=== PATIENT | female | born 1980 | race African-American/Black ===

== ENCOUNTER → 2018-07-26 | Outpatient (CLI) | payer OTHER ==
[~2018-07-26] MED LIST: CHOLESTYRAMINE L4 GM PO; CIPRO500 MG PO; FLAGYL500 MG PO; IMODIUM2 MG PO; LOPRESSOR25 MG PO
== END ==
LOC: MAMMO 13:18
PROVIDERS: ATTEND Internal Medicine
DX: Z12.31 Encounter for screening mammogram for malignant neoplasm of breast (principal)
CPT/HCPCS: 77067

== ENCOUNTER 2018-10-30 01:08 | Emergency (ER) | payer OTHER ==
[~2018-10-30] VITALS: Ht 167.6 cm; Wt 124.3 kg
--- OUTSIDE RECORDS SUMMARY | 2018-10-30 01:10 | XMS REPORT ---
Author Author [facility] Address Unknown Phone Unavailable Care Team Providers Care Photography Manager Name Role Phone RIA DAVEY Unavailable Unavailable AIDAN HU Unavailable Unavailable Problems This patient has no known problems. Allergies, Adverse Reactions, Alerts This patient has no known allergies or adverse reactions. Medications This patient has no known medications. Results Test Description Test Time Test Comments Text Results Atomic Results Result Comments MAMMOGRAPHY DIGITAL SCR BILAT 2018-07-26 14:04:00 [place] [address] Patient Name: ELANA QUINONES MR #: [id number] : 1980 Age/Sex: 38/F Req #: [id number] Adm Physician: Ordered by: RIA DAVEY MD Report #: [id number] Location: MAMMO Room/Bed: Procedure: [id number] MG/MAMMOGRAPHY DIGITAL SCR BILAT Exam Date: 07/26/18 Exam Time: 1330 REPORT STATUS: Signed #[id number] - MGSCRBIL #BILATERAL FIRST EVER DIGITAL SCREENING MAMMOGRAM WITH CAD: 07/26/2018 CLINICAL: Routine screening. Baseline exam. No prior exams were available for comparison. Current study contains 6 films. There are scattered fibroglandular elements in both breasts. Current study was also evaluated with a Computer Aided Detection (CAD) system. No significant masses, calcifications, or other findings are seen in either breast. IMPRESSION: NEGATIVE There is no mammographic evidence of malignancy. A 1 year screening mammogram is recommended. The patient will be notified by letter of the results. Edilson peng/dodie:08/09/2018 10:39:30 Delivery Driver/Supervisor: Kezia TEE)(Yolanda), [facility] letter sent: Normal Exam Mammogram BI-RADS: 1 Negative Dictated By: EDILSON HWANG DO 1039 Transcribed By: DODIE on 08/09/18 1039 COPY TO: RIA DAVEY MD BA. SWALLOW [place] [address] Patient Name: ELANA QUINONES MR #: [id number] : 1980 Age/Sex: 36/F Req #: [id number] [facility] Physician: Ordered by: AIDAN HU MD Report #: [id number] Location: DX Room/Bed: Procedure: [id number] DX/MODIFIED BA. SWALLOW Exam Date: 04/25/17 Exam Time: 1030 REPORT STATUS: Signed PROCEDURE: X-RAY MODIFIED BARIUM SWALLOW COMPARISON: None. INDICATIONS: Dysphasia; previous dilatation of the esophagus in February 2017. DISCUSSION: Fluoroscopic examination was performed in conjunction with speech pathology, during swallowing of a variety of thin and thick liquid consistencies. Fluoroscopy time: 0.7 minutes Total dose: 5.36 mGy CONCLUSION: No penetration or aspiration. Please see the report from speech pathology for complete details. Edilson Hwang D.O. Dictated by: Edilson Hwang D.O. on 04/25/2017 at 12:47 Electronically approved by: Edilson Hwang D.O. on 04/25/2017 at 12:47 Dictated By: EDILSON HWANG DO 1247 Transcribed By: NICHOLAS on 04/25/171246 COPY TO: AIDAN HU MD
--- NOTE | 2018-10-30 02:06 | Diagnostic Imaging Report ---
EXAMINATION: CHEST 2 VIEWS INDICATION: ^sob ^[id number] ^0145 ^Y COMPARISON: None FINDINGS: PA and lateral views TUBES and LINES: None. LUNGS: Lungs are well inflated. There is no evidence of pneumonia or pulmonary edema. PLEURA: No pleural effusion or pneumothorax. HEART AND MEDIASTINUM: The cardiomediastinal silhouette is unremarkable. BONES AND SOFT TISSUES: No acute osseous lesion. Dextroscoliosis of thoracic spine. Soft tissues are unremarkable. UPPER ABDOMEN: No free air under the diaphragm. IMPRESSION: No acute thoracic abnormality. Signed by: Dr. Fahad Eden MD on 10/30/2018 2:02 AM
[2018-10-30 02:19] LABS: BASOPHILS % 0.5 % (0.0-1.0); BILIRUBIN,URINE NEGATIVE (NEGATIVE); CLARITY,URINE CLEAR (CLEAR); COLOR,URINE YELLOW (YELLOW); EOSINOPHILS # (AUTO) 0.3 (0.0-0.4); EOSINOPHILS % 5.5 % (0.0-6.0); HEMATOCRIT 39.3 % (34.2-44.1); HEMOGLOBIN 12.7 g/dL (12.0-16.0); KETONES,URINE NEGATIVE (NEGATIVE); LEUKOCYTE ESTERASE ,URINE NEGATIVE (NEGATIVE); LYMPHOCYTES # (AUTO) 2.3 (1.0-3.2); MEAN CORPUSCULAR HEMOGLOBIN 25.6 pg (28-32); MEAN CORPUSCULAR HGB CONC 32.3 g/dL (31-35); MEAN CORPUSCULAR VOLUME 79.2 fL (81-99); MONOCYTES # (AUTO) 0.5 (0.2-0.8); MONOCYTES % 7.9 % (4.4-11.3); NEUTROPHILS % 48.9 % (38.7-80.0); NITRITE,URINE NEGATIVE (NEGATIVE); PLATELET COUNT 237 x10e3/uL (140-360); PROTEIN,URINE DIPSTICK NEGATIVE (NEGATIVE); RED BLOOD COUNT 4.96 x10e6/uL (3.6-5.1); RED CELL DISTRIBUTION WIDTH 13.5 % (11.7-14.4); URINE UROBILINOGEN 0.2 mg/dL (0.2 - 1)
[2018-10-30 02:21] LABS: PREGNANCY TEST, URINE NEGATIVE (NEGATIVE)
[2018-10-30 02:35] LABS: ALANINE AMINOTRANSFERASE 21 IU/L (0-55); ALBUMIN 3.4 g/dL (3.5-5.0); ALBUMIN/GLOBULIN RATIO 0.8 (0.8-2.0); ALKALINE PHOSPHATASE 82 IU/L (40-150); ANION GAP 11.7 mmol/L (8-16); BLOOD UREA NITROGEN 13 mg/dL (7-26); BUN/CREATININE RATIO 18 (6-25); CALCIUM 9.2 mg/dL (8.4-10.2); CARBON DIOXIDE 26 mmol/L (22-29); CHLORIDE 102 mmol/L (98-107); CREATINE KINASE 250 IU/L (29-168); CREATININE, SERUM 0.71 mg/dL (0.57-1.11); EST GLOMERULAR FILTRATION RATE > 60 ML/MIN (60-); GLUCOSE 90 mg/dL (74-118); POTASSIUM 3.7 mmol/L (3.5-5.1); SODIUM 136 mmol/L (136-145)
[2018-10-30 02:49] LABS: BACTERIA,URINE MODERATE /HPF
[2018-10-30 02:50] LABS: EPITHELIAL CELLS,URINE FEW /LPF
[2018-10-30 03:13] VITALS: BP 130/89
== END 2018-10-30 03:31 | disposition home or self-care (01) ==
LOC: ER 01:08
DX: N30.01 Acute cystitis with hematuria (principal); R06.00 Dyspnea, unspecified; Z88.6 Allergy status to analgesic agent; Z91.013 Allergy to seafood; Z83.3 Family history of diabetes mellitus; Z82.49 Family history of ischemic heart disease and other diseases of the circulatory system
CPT/HCPCS: 36415; 71046; 80053; 81001; 81025; 82550; 82553; 83880; 84484; 85025; 85379; 93005; 99284

== ENCOUNTER 2019-09-30 21:38 | Emergency (ER) | payer OTHER ==
[~2019-09-30] VITALS: Ht 167.6 cm; Wt 123.4 kg
--- OUTSIDE RECORDS SUMMARY | 2019-09-30 21:41 | XMS REPORT ---
Author Author [facility] Organization [facility] Address Unknown Phone Unavailable Care Team Providers Care Home Health Rn Name Role Phone RIA DAVEY MD PP Luis A SHULTZ Unavailable Unavailable RIA DAVEY Unavailable Unavailable AIDAN HU Unavailable Unavailable Payers Payer Name Policy Type Policy Number Effective Date Expiration D marychuy [facility] [id number] 2018 00:00:00 Problems Condition Name Condition Details Condition Category Status Onset Date Resolution Date Last Treatment Date Treating Clinician Comments Multiple gallstones Gall stones Problem Active Allergies, Adverse Reactions, Alerts Allergy Name Allergy Type Status Severity Reaction(s) Onset Date Inacti ve Date Treating Clinician Comments Aspirin Allergy to Substance Active Unknown SWELLING 2018-10-30 00:00:0 0 Nitrofurantoin Allergy to Substance Active Mild ITCHING 2018-10-30 0 0:00:00 SHELLFISH Allergy to Substance Active Severe SWELLING, CAN'T BREATHE 2017-02-16 00:00:00 seafood Allergy to Substance Active Severe swellin g, itching, difficulty breathing 2016-12-30 00:00:00 Medications Ordered Medication Name Filled Medication Name Start Date Stop Da te Current Medication? Ordering Clinician Indication Dosage Frequency Signature (SIG) Comments Components Metoprolol Tartrate (Lopressor) 25 Mg Tab Metoprolol T artrate (Lopressor) 25 Mg Tab 2017-01-01 00:00:00 Yes Joseph Lafleur Cardiopulmonary Physical Therapist 12.5 T wice A Day Cholestyramine (Cholestyramine Light Packet) 4 Gm Pack , 4 Gm Oral Cholestyramine (Cholestyramine Light Packet) 4 Gm Pack, 4 Gm Oral 2017-01-01 00:00:00 2017-03-05 00:00:00 No Joseph Lafleur Cardiopulmonary Physical Therapist 4 Twice A Day Ciprofloxacin Hcl (Cipro) 500 Mg Tablet, 500 Mg Oral C iprofloxacin Hcl (Cipro) 500 Mg Tablet, 500 Mg Oral 2017-01-01 00:00:00 2017-01-03 00:00:00 No Joseph Lafleur Cardiopulmonary Physical Therapist 500 Twice A Day Loperamide Hcl (Imodium*) 2 Mg Cap, 2 Mg Oral Loperami de Hcl (Imodium*) 2 Mg Cap, 2 Mg Oral 2017-01-01 00:00:00 2017-01-03 00:00:00 No Joseph Lafleur N p 2 Three Times A Day as needed for Diarrhea Metronidazole (Flagyl) 500 Mg Tablet, 500 Mg Oral Metr onidazole (Flagyl) 500 Mg Tablet, 500 Mg Oral 2017-01-01 00:00:00 2017-01-03 00:00:00 No Joseph Lafleur Cardiopulmonary Physical Therapist 500 , Procedures and Interventions Procedure Date / Time Performed Performing Clinici an X-ray of chest, two views 2018-10-30 00:00:00 ARANZA SHULTZ Encounters Start Date/Time End Date/Time Encounter Type Admission Type [facility] Facility Care Department Encounter ID 2018-10-30 01:08:00 2018-10-30 03:31:00 Departed Emergency Room 1 ROS SHULTZ [facility] [id number] 2018-07-26 13:18:00 2018-07-26 13:18:00 Registered Clinic 3 DAVEYRIA [facility] [id number] Results Test Description Test Time Test Comments Text Results Atomic Results Result Comments Urine WBC 2018-10-30 02:50:00 Urine WBC (test code = 5821-4) 6-10 0-5 Urine FCG3634-15-82 02:50:00* Test Item Value Reference Range Comments Urine RBC (test code = 69218-9) 6-10 0-5 Urine Vgohkvcx2032-65-14 02:50:00* Test Item Value Reference Range Comments Urine Bacteria (test code = 38506-5) MODERATE NONE Urine Epithelial Pwqcg8156-80-09 02:50:00* Test Item Value Reference Range Comments Urine Epithelial Cells (test code = 39631-3) FEW NON E B-Type Natriuretic Yiregfm6522-66-62 02:48:00* Test Item Value Reference Range Comments B-Type Natriuretic Peptide (test code = 00273-6) 10.3 0-100 Creatine Kinase HD8200-20-82 02:43:00* Test Item Value Reference Range Comments Creatine Kinase MB (test code = 40926-7) 0.90 0-5.0 Troponin V3869-10-49 02:43:00* Test Item Value Reference Range Comments Troponin I (test code = EZV5115) < 0.001 0-0.300 Sodium Dkzve6396-19-95 02:36:00* Test Item Value Reference Range Comments Sodium Level (test code = 2951-2) 136 136-145 Potassium Pjgob5704-97-39 02:36:00* Test Item Value Reference Range Comments Potassium Level (test code = 2823-3) 3.7 3.5-5.1 Chloride Cyaum2440-65-69 02:36:00* Test Item Value Reference Range Comments Chloride Level (test code = 2075-0) 102 98-107 Carbon Dioxide Yskaq2413-79-28 02:36:00* Test Item Value Reference Range Comments Carbon Dioxide Level (test code = 2028-9) 26 22-29 Anion Yed2500-48-68 02:36:00* Test Item Value Reference Range Comments Anion Gap (test code = 33643-3) 11.7 8-16 Blood Urea Ddltnfqy0459-82-20 02:36:00* Test Item Value Reference Range Comments Blood Urea Nitrogen (test code = 3094-0) 13 7-26 Nvxrtskakl2883-62-00 02:36:00* Test Item Value Reference Range Comments Creatinine (test code = 2160-0) 0.71 0.57-1.11 BUN/Creatinine Tcjrq6125-60-46 02:36:00* Test Item Value Reference Range Comments BUN/Creatinine Ratio (test code = 3097-3) 18 6-25 Estimat Glomerular Filtration Tzxd7421-41-27 02:36:00* Test Item Value Reference Range Comments Estimat Glomerular Filtration Rate (test code = 461015135) > 60 >60 Ranges were taken from the National Kidney Disease Education Program and the [facility] Kidney Foundation literature.Reference ranges:60 or greater: Ucnvwi76-60 ( for 3 consecutive months): Chronic kidney disease 15 or less: Kidney failure Glucose Dnufs6912-50-96 02:36:00* Test Item Value Reference Range Comments Glucose Level (test code = GZS1419) 90 74-118 Calcium Dpkvx2708-16-93 02:36:00* Test Item Value Reference Range Comments Calcium Level (test code = 56343-1) 9.2 8.4-10.2 Total Zkzjqckxs9376-93-35 02:36:00* Test Item Value Reference Range Comments Total Bilirubin (test code = 1975-2) 0.2 0.2-1.2 Aspartate Amino Transf (AST/SGOT)2018-10-30 02:36:00* Test Item Value Reference Range Comments Aspartate Amino Transf (AST/SGOT) (test code = Aspartate Amino Transf (AST/SGOT)) 22 5-34 Alanine Aminotransferase (ALT/SGPT)2018-10-30 02:36:00* Test Item Value Reference Range Comments Alanine Aminotransferase (ALT/SGPT) (test code = 1742-6) 21 0-55 Total Nsrtzuf0401-72-65 02:36:00* Test Item Value Reference Range Comments Total Protein (test code = 2885-2) 7.5 6.5-8.1 Nyqiyha2270-11-92 02:36:00* Test Item Value Reference Range Comments Albumin (test code = 1751-7) 3.4 3.5-5.0 Cxlazrdi1433-10-55 02:36:00* Test Item Value Reference Range Comments Globulin (test code = 17373-9) 4.1 2.3-3.5 Albumin/Globulin Onvqq2166-30-36 02:36:00* Test Item Value Reference Range Comments Albumin/Globulin Ratio (test code = 1759-0) 0.8 0.8- 2.0 Alkaline Izziczrvpri5436-24-22 02:36:00* Test Item Value Reference Range Comments Alkaline Phosphatase (test code = 6768-6) 82 40-150 Creatine Zneaoj8057-29-86 02:36:00* Test Item Value Reference Range Comments Creatine Kinase (test code = 2157-6) 250 29-168 D-Dimer Quantitative (PE/DVT)2018-10-30 02:28:00* Test Item Value Reference Range Comments D-Dimer Quantitative (PE/DVT) (test code = 31860-5) 0.17 0.00-0.45 As with all in vitro diagnostic tests, the test results should be interpreted by the physician in conjunction with clinical findings and other test results.Test results are reported in NEW D-dimer units(ug/mLFEU).Urine Gnggh5979-55-40 02:23:00* Test Item Value Reference Range Comments Urine Color (test code = 5778-6) YELLOW YELLOW Urine Hzovdgx7019-28-38 02:23:00* Test Item Value Reference Range Comments Urine Clarity (test code = 46948-9) CLEAR CLEAR Urine Specific Ajfpnmt9141-65-46 02:23:00* Test Item Value Reference Range Comments Urine Specific Wilson (test code = 5811-5) 1.010 1.01 0-1.025 Urine hC7423-76-42 02:23:00* Test Item Value Reference Range Comments Urine pH (test code = 85476-7) 7.5 5-7 Urine Leukocyte Axyiibax5903-88-91 02:23:00* Test Item Value Reference Range Comments Urine Leukocyte Esterase (test code = 60191-7) NEGATIVE N EGATIVE Urine Tgxbnre2497-96-79 02:23:00* Test Item Value Reference Range Comments Urine Nitrite (test code = 79295-1) NEGATIVE NEGATIVE Urine Oveumkj9635-63-28 02:23:00* Test Item Value Reference Range Comments Urine Protein (test code = 84613-8) NEGATIVE NEGATIVE Urine Glucose (UA)2018-10-30 02:23:00* Test Item Value Reference Range Comments Urine Glucose (UA) (test code = 98353-4) NEGATIVE NEGATIV E Urine Hbpawge5337-05-36 02:23:00* Test Item Value Reference Range Comments Urine Ketones (test code = 18188-6) NEGATIVE NEGATIVE Urine Bhthnwudrbdd5998-53-31 02:23:00* Test Item Value Reference Range Comments Urine Urobilinogen (test code = 48028-7) 0.2 0.2-1 Urine Mvrecoouw5064-93-89 02:23:00* Test Item Value Reference Range Comments Urine Bilirubin (test code = 1977-8) NEGATIVE NEGATIVE Urine Lerkk8798-53-08 02:23:00* Test Item Value Reference Range Comments Urine Blood (test code = 67123-3) NEGATIVE NEGATIVE White Blood Kqesg1217-31-85 02:22:00* Test Item Value Reference Range Comments White Blood Count (test code = 6690-2) 6.19 4.8-10.8 Red Blood Nnmvt9330-72-78 02:22:00* Test Item Value Reference Range Comments Red Blood Count (test code = 789-8) 4.96 3.6-5.1 Hbcrsrepib7813-70-16 02:22:00* Test Item Value Reference Range Comments Hemoglobin (test code = 31007-4) 12.7 12.0-16.0 Njgypfqkvq6295-85-87 02:22:00* Test Item Value Reference Range Comments Hematocrit (test code = 4544-3) 39.3 34.2-44.1 Mean Corpuscular Njvajo6087-53-90 02:22:00* Test Item Value Reference Range Comments Mean Corpuscular Volume (test code = 787-2) 79.2 81-9 9 Mean Corpuscular Cflgwuyjyv7530-64-81 02:22:00* Test Item Value Reference Range Comments Mean Corpuscular Hemoglobin (test code = 785-6) 25.6 28-32 Mean Corpuscular Hemoglobin Vvaoqgo3519-85-10 02:22:00* Test Item Value Reference Range Comments Mean Corpuscular Hemoglobin Concent (test code = 786-4) 32.3 31-35 Red Cell Distribution Fkibv3529-17-99 02:22:00* Test Item Value Reference Range Comments Red Cell Distribution Width (test code = 85960-8) 13.5 11.7-14.4 Platelet Eryhc2787-05-64 02:22:00* Test Item Value Reference Range Comments Platelet Count (test code = 777-3) 237 140-360 Neutrophils (%) (Auto)2018-10-30 02:22:00* Test Item Value Reference Range Comments Neutrophils (%) (Auto) (test code = 14786-9) 48.9 38. 7-80.0 Lymphocytes (%) (Auto)2018-10-30 02:22:00* Test Item Value Reference Range Comments Lymphocytes (%) (Auto) (test code = 736-9) 37.0 18.0- 39.1 Monocytes (%) (Auto)2018-10-30 02:22:00* Test Item Value Reference Range Comments Monocytes (%) (Auto) (test code = 5905-5) 7.9 4.4-11 .3 Eosinophils (%) (Auto)2018-10-30 02:22:00* Test Item Value Reference Range Comments Eosinophils (%) (Auto) (test code = 713-8) 5.5 0.0-6 .0 Basophils (%) (Auto)2018-10-30 02:22:00* Test Item Value Reference Range Comments Basophils (%) (Auto) (test code = 706-2) 0.5 0.0-1.0 IM GRANULOCYTES %2018-10-30 02:22:00* Test Item Value Reference Range Comments IM GRANULOCYTES % (test code = IM GRANULOCYTES %) 0.2 0.0-1.0 Neutrophils # (Auto)2018-10-30 02:22:00* Test Item Value Reference Range Comments Neutrophils # (Auto) (test code = 751-8) 3.0 2.1-6.9 Lymphocytes # (Auto)2018-10-30 02:22:00* Test Item Value Reference Range Comments Lymphocytes # (Auto) (test code = 64638-4) 2.3 1.0-3 .2 Monocytes # (Auto)2018-10-30 02:22:00* Test Item Value Reference Range Comments Monocytes # (Auto) (test code = 742-7) 0.5 0.2-0.8 Eosinophils # (Auto)2018-10-30 02:22:00* Test Item Value Reference Range Comments Eosinophils # (Auto) (test code = 711-2) 0.3 0.0-0.4 Basophils # (Auto)2018-10-30 02:22:00* Test Item Value Reference Range Comments Basophils # (Auto) (test code = 704-7) 0.0 0.0-0.1 Absolute Immature Granulocyte (ucru2777-24-31 02:22:00* Test Item Value Reference Range Comments Absolute Immature Granulocyte (auto (joey t code = Absolute Immature Granulocyte (auto) 0.01 0-0.1 Urine Acod0130-89-44 02:21:00* Test Item Value Reference Range Comments Urine Test (test code = 2106-3) NEGATIVE NEGATI VE CHEST 2 QCNMY7264-46-66 02:02:00 [place] [address] Patient Name: ELANA QUINONES MR #: [id number] : 1980 Age/Sex: 38/F Req #: [id number] Adm Physician: Ordered by: ROS SHULTZ MD Report #: [id number] Location: ER Room/Bed: Procedure: [id number] DX/CHEST 2 VIEWS Exam Date: 10/30/18 Exam Time: REPORT STATUS: Signed EXAMINA TION: CHEST 2 VIEWS INDICATION: sob [id number] Y COMPARISON: None FINDINGS: PA and lateral views TUBES and LINES: None. LUNGS: Lungs are well inflated. There is no evidence of pne umonia or pulmonary edema. PLEURA: No pleural effusion or pneumothorax. HEART AND MEDIASTINUM: The cardiomediastinal silhouette is unremarkable. BONES AND SOFT TISSUES: No acute osseous lesion. Dextroscoliosis of tho racic spine. Soft tissues are unremarkable. UPPER ABDOMEN: No free air un tana the diaphragm. IMPRESSION: No acute thoracic abnormality. Signed by: Dr. Fahad Cote MD on 10/30/2018 2:02 AM Dictated By: FAHAD COTE MD 1 Transc ribed By: MARY ANN on 10/30/18201 COPY TO: ROS SHULTZ MD MAMMOGRAPHY DIGITAL SCR GHGEE8952-68-70 14:04:00 [facility] [address] [place] [address] Patient Name: ELANA QUINONES MR #: [id number] : 1980 Age/Sex: 38/F Req #: [id number] Adm Physician: Ordered by: RIA DAVEY MD Report #: [id number] Location: MAMMO Room/Bed: Procedure: [id number] MG /MAMMOGRAPHY DIGITAL SCR BILAT Exam Date: 07/26/18 E xam Time: 1330 REPORT STATUS: Soumya d #[id number] - MGSCRBIL #BILATERAL FIRST EVER DIGITAL SCREENING MAMM OGRAM WITH CAD: 07/26/2018 CLINICAL: Routine screening. Baseline exam. N o prior exams were available for comparison. Current study contains 6 films. There are scattered fibroglandular elements in both breasts. Current study was also evaluated with a Computer Aided Detection (CAD) system. No signifi cant masses, calcifications, or other findings are seen in either breast. IMPRESSION: NEGATIVE There is no mammographic evidence of malignancy. A 1 ye ar screening mammogram is recommended. The patient will be notified by letter of the results. Abelardo peng/grace:08/09/2018 10:39:30 Paper Baling Machine Operator: Kezia TEE)(Yolanda), [facility] letter sent: Normal Exam Mammogram BI-RADS: 1 Negative Dictated By: ABELARDO HWANG DO 1039 Transcribed By: GRACE on 08/09/18 1039 COPY TO: RIA DAVEY MD MODIFIED BA. SWALLOW [place] [address] Patient Name: ELANA QUINONES MR #: [id number] : 1980 Age/Sex: 36/F Req #: [id number] Adm Physician: Ordered by: AIDAN HU MD Report #: [id number] Location: DX Room/Bed: Procedure: [id number] DX/MODIFIED BA. SWALLOW Exam D ate: 04/25/17 Exam Time: 1030 REPORT STATUS: Si gned PROCEDURE: X-RAY MODIFIED BARIUM SWALLOW COMPARISON: None. INDICATIONS: Dysphasia; previous dilatation of the esophagus in February 2017. DISCUSSION: Fluoroscopic examination was performed in conjunction with speech pathology, during swallowing of a variety of thin and thick li quid consistencies. Fluoroscopy time: 0.7 minutes Total dose: 5.36 mGy CONCLUSION: No penetration or aspiration. Please see the report from speech pathology for complete details. Abelardo maldonado D.O. Dictated by: Abelardo Hwang D.O. on 04/25/2017 at 12:47 Elec tronically approved by: Abelardo Hwang D.O. on 04/25/2017 at 12:47 Dictated By: ABELARDO HWANG DO 1247 Transcribed By: NICHOLAS on 04/25/17 1247 COPY TO: AIDAN HU MD
[2019-09-30] MEDS ORDERED: ONDANSETRON HCL INJ 2MG/ML 2ML 2 MG/ML VIAL IV STA (21:54)
[2019-09-30] MEDS ORDERED: PANTOPRAZOLE 40 MG 10ML VIAL IV STA (21:54)
[2019-09-30] MEDS ORDERED: MORPHINE SULFATE INJ 4 MG/ML INJ 1ML IV STA (21:59)
[2019-09-30] MEDS ORDERED: CEFEPIME 2 GM/NS 0.9% 100 ML 100 ML IV SCH (22:00)
[2019-09-30] MEDS ORDERED: DICYCLOMINE HCL 20 MG/2 ML VIAL IM ONE (22:00)
[2019-09-30 22:06] LABS: BASOPHILS % 0.7 % (0.0-1.0); EOSINOPHILS # (AUTO) 0.2 (0.0-0.4); HEMATOCRIT 41.6 % (34.2-44.1); HEMOGLOBIN 13.3 g/dL (12.0-16.0); LYMPHOCYTES # (AUTO) 1.3 (1.0-3.2); LYMPHOCYTES % 22.7 % (18.0-39.1); MEAN CORPUSCULAR HEMOGLOBIN 25.3 pg (28-32); MEAN CORPUSCULAR VOLUME 79.2 fL (81-99); MONOCYTES # (AUTO) 0.5 (0.2-0.8); NEUTROPHILS # (AUTO) 3.7 (2.1-6.9); NEUTROPHILS % 65.4 % (38.7-80.0); PLATELET COUNT 241 x10e3/uL (140-360); RED BLOOD COUNT 5.25 x10e6/uL (3.6-5.1); RED CELL DISTRIBUTION WIDTH 13.4 % (11.7-14.4)
[2019-09-30 22:08] LABS: BILIRUBIN,URINE NEGATIVE (NEGATIVE); CLARITY,URINE CLEAR (CLEAR); COLOR,URINE YELLOW (YELLOW); KETONES,URINE NEGATIVE (NEGATIVE); LEUKOCYTE ESTERASE ,URINE NEGATIVE (NEGATIVE); NITRITE,URINE NEGATIVE (NEGATIVE); PROTEIN,URINE DIPSTICK NEGATIVE (NEGATIVE); URINE UROBILINOGEN 0.2 mg/dL (0.2 - 1)
[2019-09-30 22:20] LABS: RBC,URINE 0-5 /HPF (0-5)
[2019-09-30 22:21] LABS: EPITHELIAL CELLS,URINE RARE /LPF
[2019-09-30 22:21] LABS: ALANINE AMINOTRANSFERASE 15 IU/L (0-55); ALBUMIN 3.5 g/dL (3.5-5.0); ALBUMIN/GLOBULIN RATIO 0.9 (0.8-2.0); ALKALINE PHOSPHATASE 82 IU/L (40-150); ANION GAP 12.8 mmol/L (8-16); BLOOD UREA NITROGEN 7 mg/dL (7-26); BUN/CREATININE RATIO 10 (6-25); CALCIUM 9.1 mg/dL (8.4-10.2); CARBON DIOXIDE 25 mmol/L (22-29); CHLORIDE 104 mmol/L (98-107); CREATINE KINASE 125 IU/L (29-168); CREATININE, SERUM 0.73 mg/dL (0.57-1.11); EST GLOMERULAR FILTRATION RATE > 60 ML/MIN (60-); GLUCOSE 100 mg/dL (74-118); POTASSIUM 3.8 mmol/L (3.5-5.1); SODIUM 138 mmol/L (136-145)
[2019-09-30 22:26] LABS: AMYLASE 58 U/L (25-125); LIPASE 19 U/L (8-78)
[2019-09-30 22:44] VITALS: BP 148/96
[2019-09-30] MEDS ORDERED: METRONIDAZOLE 500MG/NS 100ML 100 ML IV SCH (23:00)
== END 2019-09-30 23:08 | disposition home or self-care (01) ==
LOC: ER 21:38
DX: R10.13 Epigastric pain (principal); R11.2 Nausea with vomiting, unspecified; K80.70 Calculus of gallbladder and bile duct without cholecystitis without obstruction; I10 Essential (primary) hypertension
CPT/HCPCS: 36415; 80053; 81001; 82150; 82550; 82553; 83690; 84484; 85025; 93005; 99284; C9113; J0500; J2270; J2405